=== PATIENT | male | born 1955 | race Caucasian/White ===

== ENCOUNTER 2016-12-13 03:58 | Emergency (ER) | payer OTHER ==
[~2016-12-13 03:58] MED LIST: ASPIR 8181 MG PO; CORAL CALCIUM PO; FLAX SEED OIL1000 MG PO; FLOMAX0.4 MG PO; MACA500 MG PO; MULTIVITAMIN1 TAB PO; NEXIUM40 MG PO; NORCO 7.5/325 T1 TAB PO; PREVACID15 MG PO; PRILOSEC20 MG PO; SAW PALMETTO CA1 CAP PO; ZYRTEC10 M3 PO; [UNRECOGNIZED DRUG - REMARK]
== END 2016-12-13 04:52 ==
LOC: EDMED 03:58
DX: R33.9 Retention of urine, unspecified (principal); N40.0 Benign prostatic hyperplasia without lower urinary tract symptoms; Z87.442 Personal history of urinary calculi